=== PATIENT | male | born 1980 ===

== ENCOUNTER 2023-01-01 00:23 | Emergency (ER) | payer MEDICAID, OTHER ==
[~2023-01-01] VITALS: Ht 177.8 cm; Wt 81.6 kg
[2023-01-01 00:33] VITALS: BP 140/96
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
[2023-01-01] MEDS ORDERED: HYDROcodone/ACETAMINOPHEN 5 MG/325 MG TABLET PO ONE (00:45)
[2023-01-01] MEDS ORDERED: IBUPROFEN 600 MG TABLET PO ONE (00:45)
[2023-01-01] MEDS ORDERED: ACHD5005 PO ×2 (01:22→16:06)
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
== END 2023-01-01 01:28 | disposition home or self-care (01) ==
LOC: ER 00:26
DX: S92.425A Nondisplaced fracture of distal phalanx of left great toe, initial encounter for closed fracture (principal); S80.212A Abrasion, left knee, initial encounter; S80.211A Abrasion, right knee, initial encounter; S90.411A Abrasion, right great toe, initial encounter; V86.99XA Unspecified occupant of other special all-terrain or other off-road motor vehicle injured in nontraffic accident, initial encounter; Y92.410 Unspecified street and highway as the place of occurrence of the external cause
CPT/HCPCS: 73562